=== PATIENT | male | born 1965 | race Caucasian/White ===

== ENCOUNTER 2016-12-31 08:31 | Observation (INO) ==
--- NOTE | 2016-12-31 08:45 | Emergency Department Report ---
Neuro HPI - General Chief Complaint: Neuro Symptoms/Deficit Stated Complaint: R side numbness Time Seen by Provider: 12/31/16 08:45 Source: patient Mode of arrival: ambulatory Limitations: no limitations - History of Present Illness HPI Narrative: Patient is a 51-year-old male HIV positive. Patient presents to the ER for evaluation of right-sided headache, of left arm with pain going down his right arm, and paresthesias of right leg. All of the symptoms started on , patient is taking ibuprofen with no relief. Patient feels he is slurring his speech as well, although patient easily able to be understood. Patient decided this morning to present to the ER for evaluation. On arrival patient's blood pressure 194/116. Onset (ago): day(s) (4 days) Time Estimated: Yes Location: left arm, right leg Severity: moderate Quality: tingling Relieving factors: none Exacerbating factors: none Context: gradual onset On Anticoagulants: No Treatments Prior to Arrival: none - Related Data Home Medications: Home Medications Medication Instructions Recorded Confirmed ARIPiprazole [Abilify] 2 mg PO DAILY 12/31/16 02/04/17 Citalopram Hydrobromide [Celexa] 40 mg PO DAILY 12/31/16 02/04/17 Darunavir/Cobicistat [Prezcobix 1 tab PO DAILY 12/31/16 02/04/17 800 mg-150 mg Tablet] Emtricitabine/Tenofov Alafenam 1 tab PO DAILY 12/31/16 02/04/17 [Descovy 200-25 mg Tablet] diphenhydrAMINE HCl [Benadryl] 50 mg PO HS 12/31/16 02/04/17 Aspirin 81 mg PO DAILY 01/09/17 02/04/17 Amlodipine [Norvasc] 10 mg PO HS 02/04/17 02/04/17 Atorvastatin Calcium 20 mg PO HS 02/04/17 02/04/17 Ibuprofen 800 mg PO Q8H PRN 02/04/17 02/04/17 Lisinopril [Prinivil] 20 mg PO DAILY 02/04/17 02/04/17 Previous Rx's Medication Instructions Recorded Baclofen [Lioresal] 1 tab PO TID PRN #20 tab 02/04/17 Meloxicam [Mobic] 15 mg PO DAILY #10 tab 02/04/17 Allergies/Adverse Reactions: Allergies Allergy/AdvReac Type Severity Reaction Status Date / Time No Known Allergies Allergy Verified 02/04/17 13:47 Review of Systems Constitutional: Denies: fever, chills, weakness Eyes: Denies: eye discharge ENT: Denies: throat pain, dental pain Cardiovascular: Denies: chest pain, palpitations Respiratory: Denies: cough, dyspnea Gastrointestinal: Denies: abdominal pain, nausea, vomiting Neurological: Reports: headache, numbness, paresthesias. Denies: weakness Psychiatric: Denies: anxiety, depression Allergic/Immunologic: Denies: facial swelling [facility] Patient Stated Medical History Human Immunodeficiency Virus ( Yes HIV) Medical History Updates: Hyperlipidemia. HIV positive - Social History Smoking status: Former smoker Substance use type: does not use Alcohol intake frequency: does not drink Physical Exam - General General appearance: alert, in no apparent distress - Head Head exam: normocephalic, normal inspection - Eye Eye exam: Present: PERRL, EOMI - ENT ENT exam: Present: normal oropharynx, mucous membranes moist - Neck Neck exam: Present: normal inspection, full ROM, trachea midline - Chest Chest inspection: Present: symmetric chest wall rise. Absent: tenderness, rash - Respiratory Respiratory exam: Present: normal lung sounds bilaterally. Absent: respiratory distress, wheezes, stridor - Cardiovascular Cardiovascular exam: Present: regular rate, normal rhythm, normal heart sounds - Abdominal Exam Abdominal exam: Present: soft. Absent: distention, tenderness - Back Exam Back exam: Present: full ROM, tenderness - Neurological Exam Neurological exam: Present: alert, oriented X3 - Expanded Neurological Exam Patient oriented to: Present: person, place, time Speech: Present: fluid speech (patient reports some slurring of speech which I do not appreciate) Cranial nerves: Normal: EOM function (II, III, IV, ), facial sensation (V), facial palsy (VII), gag reflex (IX), spinal accessory function (XI), tongue deviation (XII) Cerebellar function: Normal: finger to nose Cerebellar function: normal gait Motor strength - LUE: 5/5 Motor strength - RUE: 5/5 Motor strength - LLE: 5/5 Motor strength - RLE: 5/5 Upper motor neuron exam: Absent bilaterally: luigi neglect, pronator drift Sensory exam upper extremity: Abnormal Left: light touch Sensory exam lower extremity: Abnormal Right: light touch DTR: 2+: biceps (L), brachioradialis (L), patellar (L), patellar (R) Coma scale eye opening: spontaneous Coma scale motor response: obeys commands Coma scale verbal response: oriented Coma scale total: 15 - Psychiatric Psychiatric exam: Present: normal affect, normal mood Course Vital Signs Temperature 98.7 F 12/31/16 08:35 Pulse Rate 95 12/31/16 08:35 Respiratory Rate 20 12/31/16 08:35 Blood Pressure 196/117 H 12/31/16 08:35 Pulse Oximetry 98 12/31/16 08:35 Temperature 98.1 F 01/01/17 07:57 Pulse Rate 80 01/01/17 12:00 Respiratory Rate 13 01/01/17 10:04 Blood Pressure 138/70 01/01/17 10:04 Pulse Oximetry 95 01/01/17 10:04 Neuro Symptoms/Deficit - Differential Diagnosis Likely: carpal tunnel syndrome, subarachnoid hemorrhage, peripheral neuropathy, cerebrovascular accident, multiple sclerosis, transient cerebral ischemia - Medical Records Attestation: I reviewed the patient's medical records. - Lab Data Attestation: I reviewed the patient's lab results. Result diagrams: 01/01/17 04:02 01/01/17 04:02 Lab Results 12/31/16 12/31/16 12/31/16 Range/Units 09:06 09:07 09:07 WBC 8.1 (4.5-11.0) T/MM3 RBC 4.66 (4.50-5.90) M/MM3 Hgb 14.5 (13.5-17.5) GM/DL Hct 42.6 (41-53) % MCV 91.4 (80-100) UM3 MCH 31.1 (26-34) UUG MCHC 34.0 (31-37) GM/DL RDW Std Deviation 42.7 (36.9-50.2) FL Plt Count 198 (130-400) T/MM3 MPV 10.7 (9.4-12.4) UM3 Immature Gran % (Auto) 1.2 H (0.0-0.5) % Neut % (Auto) 68.9 H (33-66) % Lymph % (Auto) 20.2 L (23-45) % [place] % (Auto) 6.5 (0-9.0) % Eos % (Auto) 2.5 (0-4) % Baso % (Auto) 0.7 (0-2) % Neut # 5.6 (1.8-7.7) T/MM3 Lymph # 1.6 (1-4.8) T/MM3 [place] # 0.5 (0-0.8) T/MM3 Eos # 0.2 (0-0.5) T/MM3 Baso # 0.1 (0-0.2) T/MM3 Abs Immat Gran (auto) 0.10 H (0.00-0.03) T/MM3 INR (0.99-1.21) Turbidity < 20 (0-20) Sodium 144 (134-144) MEQ/L Potassium 4.0 (3.6-5) MEQ/L Chloride 109 H (98-107) MEQ/L Carbon Dioxide 23 (22-30) MEQ/L Anion Gap 12 (5-15) MEQ/L BUN 15.0 (9-20) MG/DL Creatinine 0.9 (0.8-1.5) MG/DL GFR Calculation 90 BUN/Creatinine Ratio 17 (6-26) RATIO Glucose 130 H (75-110) MG/DL Calculated Osmolality 280 (261-280) MOSM/KG Calcium 9.5 (8.4-10.2) MG/DL Total Bilirubin 0.60 (0.20-1.30) MG/DL Icterus Index < 2 (0-7) AST 33 (17-59) U/L ALT 50 (21-72) U/L Alkaline Phosphatase 72 (38-126) U/L Troponin I < 0.012 (0-0.12) ng/ml C-Reactive Protein 5.6 (0-9) MG/L Total Protein 7.8 (6.3-8.2) G/DL Albumin 4.6 (3.5-5.0) G/DL Globulin 3.2 (2.4-3.6) G/DL Albumin/Globulin Ratio 1.4 (1.1-2.2) RATIO TSH 4.02 (0.47-4.68) MIU/L Specimen Hemolysis < 15 (0-25) 12/31/ Range/Units 09:07 WBC (4.5-11.0) T/MM3 RBC (4.50-5.90) M/MM3 Hgb (13.5-17.5) GM/DL Hct (41-53) % MCV (80-100) UM3 MCH (26-34) UUG MCHC (31-37) GM/DL RDW Std Deviation (36.9-50.2) FL Plt Count (130-400) T/MM3 MPV (9.4-12.4) UM3 Immature Gran % (Auto) (0.0-0.5) % Neut % (Auto) (33-66) % Lymph % (Auto) (23-45) % [place] % (Auto) (0-9.0) % Eos % (Auto) (0-4) % Baso % (Auto) (0-2) % Neut # (1.8-7.7) T/MM3 Lymph # (1-4.8) T/MM3 [place] # (0-0.8) T/MM3 Eos # (0-0.5) T/MM3 Baso # (0-0.2) T/MM3 Abs Immat Gran (auto) (0.00-0.03) T/MM3 INR 0.95 L (0.99-1.21) Turbidity (0-20) Sodium (134-144) MEQ/L Potassium (3.6-5) MEQ/L Chloride (98-107) MEQ/L Carbon Dioxide (22-30) MEQ/L Anion Gap (5-15) MEQ/L BUN (9-20) MG/DL Creatinine (0.8-1.5) MG/DL GFR Calculation BUN/Creatinine Ratio (6-26) RATIO Glucose (75-110) MG/DL Calculated Osmolality (261-280) MOSM/KG Calcium (8.4-10.2) MG/DL Total Bilirubin (0.20-1.30) MG/DL Icterus Index (0-7) AST (17-59) U/L ALT (21-72) U/L Alkaline Phosphatase (38-126) U/L Troponin I (0-0.12) ng/ml C-Reactive Protein (0-9) MG/L Total Protein (6.3-8.2) G/DL Albumin (3.5-5.0) G/DL Globulin (2.4-3.6) G/DL Albumin/Globulin Ratio (1.1-2.2) RATIO TSH (0.47-4.68) MIU/L Specimen Hemolysis (0-25) - Radiology Data Attestation: I reviewed the patient's radiology results. Disposition Clinical Impression: Cerebrovascular accident Qualifiers: CVA mechanism: occlusion Precerebral and cerebral artery: unspecified cerebral artery Qualified Code(s): I63.50 - Cerebral infarction due to unspecified occlusion or stenosis of unspecified cerebral artery Disposition: [facility] Condition: Stable - Seen By: physician
[2016-12-31] MEDS ORDERED: LABETALOL 20mg/4ml INJECTION IVP ONE (08:50)
[2016-12-31] MEDS ORDERED: SALINE FLUSH 10ml SYRINGE IVF PRN (08:50)
--- OUTSIDE RECORDS SUMMARY | 2016-12-31 08:50 | External Medical Summary ---
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
--- OUTSIDE RECORDS SUMMARY | 2016-12-31 08:50 | External Medical Summary ---
:1965 Author [facility] Care Team Providers Name Role Phone Cindy Zarate Provider Role Unavailable Allergies, Adverse Reactions, Alerts Substance Reaction Event Type N.K.D.A. Info Not Available Non Drug Allergy Problems Problem Type Condition Code Onset Dates Condition Status Assessment Influenza vaccine needed Z23 Active Problem Cigarette nicotine dependence, F17.210 Active uncomplicated Assessment Acquired immune deficiency syndrome B20 Active Problem Low back pain M54.5 Active Problem Nicotine dependence, other tobacco F17.290 Active product, uncomplicated Problem Major depressive disorder with F32.9 Active single episode, remission status unspecified Problem Patient's other noncompliance with Z91.14 Active medication regimen Problem AIDS B20 Active Problem Mixed hyperlipidemia E78.2 Active Problem skilled nursing (current) use of opiate Z79.891 Active analgesic Assessment Major depressive disorder with F32.9 Active single episode, remission status unspecified Assessment Patient's other noncompliance with Z91.14 Active medication regimen Assessment Need for Z23 Active hdthieqbtn-lccqwjz-kcamfbozp (Tdap) vaccine Assessment Cigarette nicotine dependence, F17.210 Active uncomplicated Assessment Nicotine dependence, other tobacco F17.290 Active product, uncomplicated Assessment Screening examination for sexually Z11.3 Active transmitted disease 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 Jun 27, not (one half) prn 2006 defined Citalopram [facility] [id number] 40 TAKE ONE Hydrobromide TABLET BY MOUTH EVERY DAY Abilify [facility] [id number] 2 Orally Once a 1 tablet day Isentress [facility] 08907736849 400 TAKE ONE TABLET BY MOUTH TWICE A DAY Abilify [facility] [address]-63 2 MG Orally Feb 17, 1 tablet Once a day 2013 Pravastatin [facility] [address]-50 40 MG Orally August 1 tablet Sodium QHS 2014 Edurant [facility] [id number] 25 TAKE ONE TABLET BY MOUTH ONCE A DAY Prezcobix [facility] 05901-306-95 800/150 mg Oral Apr 06, 1 tablet Once Daily 2015 Descovy [facility] [address]-82 200-25 mg Apr 06, 1 tablet Orally Once a 2015 day Reyataz [facility] [address]-87 300 MG Orally 1 capsule Once a day with food Norvir [facility] 51198899104 100 TAKE ONE TABLET BY MOUTH EVERY DAY Ibuprofen [facility] [address]-26 200 MG Oral 3 not tablet two defined times daily as needed Procedures Procedure Coding System Code Date GENOTYPE, DNA, HIV REVERSE T CPT-4 09716 Apr 06, 2016 HIV-1, DNA, QUANT CPT-4 64031 Apr 06, 2016 FLU VAC NO PRSV 4 VARUN 3 YRS+ CPT-4 03797 Apr 06, 2016 ASSAY OF FREE THYROXINE CPT-4 60537 Apr 06, 2016 ASSAY THYROID STIM HORMONE CPT-4 41473 Apr 06, 2016 PHENOTYPE, INFECT AGENT DRUG CPT-4 87482 Apr 06, 2016 Venipuncture CPT-4 87017 Apr 06, 2016 IMMUNIZATION ADMIN CPT-4 27084 Apr 06, 2016 Pneumococcal polysaccharide PPV23 CPT-4 51316 Apr 06, 2016 COMPREHEN METABOLIC PANEL CPT-4 31857 Apr 06, 2016 Tdap CPT-4 35978 Apr 06, 2016 Office Visit, Est Pt., Level 3 CPT-4 51546 Apr 06, 2016 LIPID PANEL SO CPT-4 59318 Apr 06, 2016 T CELL, ABSOLUTE COUNT/RATIO CPT-4 57274 Apr 06, 2016 Vital Signs Date/Time: Apr 06, 2016 Temperature 97.7 F Weight 211 lbs Height 73 in Respiratory Rate 16 /min Cardiac Monitoring Heart Rate 89 /min Blood Pressure Diastolic 100 mm Hg Blood Pressure Systolic 150 mm Hg BMI 27.84 Index Oximetry 98 % Results No Known Results Immunizations Vaccine Administration Date Influenza Split 3 yrs > (QUAD) Apr 06, 2016 Pneumococcal polysaccharide PPV23 Apr 06, 2016 Tdap Apr 06, 2016 Summary Purpose eClinicalWorks Submission
--- OUTSIDE RECORDS SUMMARY | 2016-12-31 08:50 | External Medical Summary ---
:1965 Author [facility] Care Team Providers Name Role Phone [...] Active Problem Mixed hyperlipidemia E78.2 Active Problem [facility] (current) use of opiate Z79.891 Active analgesic Assessment Major depressive disorder with F32.9 Active single episode, remission status unspecified Assessment Patient's other noncompliance with Z91.14 Active medication regimen Assessment Need for Z23 Active rakwmmtktq-kcuyaar-dhqpbenkr (Tdap) vaccine Assessment Cigarette nicotine dependence, F17.210 Active uncomplicated Assessment Nicotine dependence, other tobacco F17.290 Active product, uncomplicated Assessment Screening examination for sexually Z11.3 Active transmitted disease 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 [address]-47 100 MG PO ? Jun 27, not (one half) prn 2006 defined Citalopram [facility] [id number] 40 TAKE ONE Hydrobromide TABLET BY MOUTH EVERY DAY Abilify [facility] 25975326880 2 Orally Once a 1 tablet day Abilify [facility] [address]-37 2 MG Orally Mar 12, 1 tablet Once a day [address] [facility] [address]-41 40 MG Orally August 25 tablet Sodium Q [address] [facility] 35316188574 25 TAKE ONE TABLET BY MOUTH ONCE A DAY Prezcobix [facility] 16676-087-92 800/150 mg Oral Apr 06, 1 tablet Once Daily [address] [facility] [address]-00 200-25 mg Apr 06, 1 tablet Orally Once a 2015 day Ibuprofen [facility] [address]-94 200 MG Oral 3 not tablet two defined times daily as needed Procedures Procedure Coding System Code Date GENOTYPE, DNA, HIV REVERSE T CPT-4 64961 Apr 06, 2016 HIV-1, DNA, QUANT CPT-4 51001 Apr 06, 2016 FLU VAC NO PRSV 4 VARUN 3 YRS+ CPT-4 43959 Apr 06, 2016 ASSAY OF FREE THYROXINE CPT-4 14822 Apr 06, 2016 ASSAY THYROID STIM HORMONE CPT-4 48749 Apr 06, 2016 PHENOTYPE, INFECT AGENT DRUG CPT-4 87813 Apr 06, 2016 Venipuncture CPT-4 63628 Apr 06, 2016 IMMUNIZATION ADMIN CPT-4 17143 Apr 06, 2016 Pneumococcal polysaccharide PPV23 CPT-4 72183 Apr 06, 2016 COMPREHEN METABOLIC PANEL CPT-4 50469 Apr 06, 2016 Tdap CPT-4 43949 Apr 06, 2016 Office Visit, Est Pt., Level 3 CPT-4 27428 Apr 06, 2016 LIPID PANEL SO CPT-4 75921 Apr 06, 2016 T CELL, ABSOLUTE COUNT/RATIO CPT-4 68971 Apr 06, 2016 Vital Signs Date/Time: Apr 06, 2016 Temperature 97.7 F Weight 211 lbs Height 73 in Respiratory Rate 16 /min Cardiac Monitoring Heart Rate 89 /min Blood Pressure Diastolic 100 mm Hg Blood Pressure Systolic 150 mm Hg BMI 27.84 Index Oximetry 98 % Results Name Result Date Reference Range Unit Abnormality Flag Thyroid-Stimulating Hormone (TSH) and Free T4 79211/45037 ----TSH 0.859 20160406 0.450-4.500 uIU/mL ----T4,Free(Direct) 0.86 20160406 0.82-1.77 ng/dL Lipid Panel 22808 ----LDL Cholesterol 104 20160406 0-99 mg/dL H Calc ----VLDL Cholesterol 43 49893313 5-40 mg/dL H Jamal ----Comment: FASHION MARKETER 20160406 ----Cholesterol, Total 171 20160406 100-199 mg/dL ----HDL Cholesterol 24 20160406 >39 mg/dL L ----Triglycerides 216 20160406 0-149 mg/dL H Human Immunodeficiency Virus (HIV-1), Quantitative, Real-time PCR (graph) 15620 ----HIV-1 RNA by PCR 037645 74222156 copies/mL ----log10 HIV-1 RNA 5.243 65393415 iet80axox/ mL Rapid Plasma Reagin (RPR), Test w/ Reflex to Quant RPR/Confirm Treponema pallidum Antibodies 26662 ----RPR Non Reactive 20160406 Non Reactive GenoSure ----HIV GenoSure(R) MG . [id number] PDF Metabolic Panel (14), Comprehensive (CMP) 93666 ----Potassium, Serum 4.9 20160406 3.5-5.2 mmol/L ----Sodium, Serum 144 20160406 136-144 mmol/L ----BUN/Creatinine 20 20160406 9-20 Ratio ----eGFR If Africn Am 108 68930175 >59 mL/min/1.7 3 ----eGFR If NonAfricn 93 02981650 >59 mL/min/1.7 Am 3 ----Creatinine, Serum 0.96 20160406 0.76-1.27 mg/dL ----BUN 19 20160406 6-24 mg/dL ----Glucose, Serum 68 20160406 65-99 mg/dL ----AST (SGOT) 30 20160406 0-40 IU/L ----Globulin, Total 3.6 20160406 1.5-4.5 g/dL ----ALT (SGPT) 30 20160406 0-44 IU/L ----A/G Ratio 1.1 20160406 1.1-2.5 ----Bilirubin, Total <0.2 20160406 0.0-1.2 mg/dL ----Alkaline 66 20160406 39-117 IU/L Phosphatase, S ----Carbon Dioxide, 27 20160406 18-29 mmol/L Total ----Calcium, Serum 9.0 20160406 8.7-10.2 mg/dL ----Protein, Total, 7.7 20160406 6.0-8.5 g/dL Serum ----Albumin, Serum 4.1 20160406 3.5-5.5 g/dL ----Chloride, Serum 104 20160406 97-106 mmol/L CD4/CD8 Ratio Profile 24145 ----MCV 92 20160406 79-97 fL ----MCHC 33.6 20160406 31.5-35.7 g/dL ----MCH 30.9 20160406 26.6-33.0 pg ----Platelets 146 20160406 150-379 x10E3/uL L ----RDW 13.9 08180834 12.3-15.4 % ----Lymphs 22 20160406 % ----Neutrophils 65 20160406 % ----NRBC FASHION MARKETER 20160406 ----Hematology FASHION MARKETER 20160406 Comments: ----Abs. CD 8 923 20160406 109-897 /uL H Suppressor ----% CD 4 Pos. Lymph. 14.5 46831455 30.8-58.5 % L ----CD4/CD8 Ratio 0.19 20160406 0.92-3.72 L ----% CD 8 Pos. Lymph. 76.9 66575447 12.0-35.5 % H ----RBC 4.70 20160406 4.14-5.80 x10E6/uL ----WBC 5.2 20160406 3.4-10.8 x10E3/uL ----Hematocrit 43.1 20160406 37.5-51.0 % ----Hemoglobin 14.5 20160406 12.6-17.7 g/dL ----Immature Grans 0.0 25909391 0.0-0.1 x10E3/uL (Abs) ----Immature 0 20160406 % Granulocytes ----Baso (Absolute) 0.0 85481392 0.0-0.2 x10E3/uL ----Eos (Absolute) 0.2 74760739 0.0-0.4 x10E3/uL ----Monocytes(Absolute 0.5 20160406 0.1-0.9 x10E3/uL ) ----Lymphs (Absolute) 1.2 24731362 0.7-3.1 x10E3/uL ----Absolute CD 4 174 54400097 359-1519 /uL L [place] ----Neutrophils 3.4 23982848 1.4-7.0 x10E3/uL (Absolute) ----Immature Cells FASHION MARKETER 34247545 ----Basos 0 41198072 % ----Monocytes 9 11194214 % ----Eos 4 70964301 % Immunizations Vaccine Administration Date Influenza Split 3 yrs > (QUAD) Apr 06, 2016 Pneumococcal polysaccharide PPV23 Apr 06, 2016 Tdap Apr 06, 2016 Summary Purpose eClinicalWorks Submission
--- OUTSIDE RECORDS SUMMARY | 2016-12-31 08:50 | External Medical Summary ---
:1965 Author Organization eClinicalWorks Care Team Providers Name Role Phone Annabelle Darden Provider Role Unavailable Allergies, Adverse Reactions, Alerts Substance Reaction Event Type Penicillins Info Not Available Non Drug Allergy Problems Problem Type Condition ICD-9 Code Onset Dates Condition Status Assessment Human immunodeficiency virus 042 Active [HIV] Problem Screening examination for V74.5 Active venereal disease Problem Mixed hyperlipidemia 272.2 Active Problem Human immunodeficiency virus 042 Active [HIV] Problem Need for prophylactic V04.81 Inactive vaccination and inoculation, Influenza Problem Nondependent tobacco use 305.1 Active disorder Problem Acute upper respiratory 465.9 Inactive infections of unspecified site Problem Personal history of V15.81 Inactive noncompliance with medical treatment, presenting hazards to health Problem Lumbago 724.2 Active Problem superintendent terminal (current) use of V58.69 Inactive opiate analgesic Medications Medication Code Code Instructions Start End Status Dosage System Date Date Isentress [facility] 17301605773 400 TAKE ONE TABLET BY MOUTH TWICE A DAY Norvir [facility] 64990492613 100 TAKE ONE TABLET BY MOUTH EVERY DAY Ibuprofen [facility] [address]-81 200 MG Oral 3 not defined tablet two times daily as needed Viagra [facility] [address]-84 100 MG PO ? (one Jun 27, not defined half) prn 2006 Abilify [facility] [address]-49 2 MG Orally Once Mar 12, 1 tablet a day 2013 Reyataz [facility] 90702328396 150 TAKE TWO CAPSULES BY MOUTH EVERY DAY Celexa [facility] [address]-26 40 MG Oral 1 Jun 02, not defined (one) daily 2013 Procedures Procedure Coding System Code Date T CELL, ABSOLUTE COUNT/RATIO CPT-4 69330 Mar 12, 2014 COMPREHEN METABOLIC PANEL CPT-4 56051 Mar 12, 2014 Venipuncture CPT-4 22547 Mar 12, 2014 Office Visit, Est Pt., Level 3 CPT-4 25666 Mar 12, 2014 HIV-1, DNA, QUANT CPT-4 95537 Mar 12, 2014 COMPLETE CBC W/AUTO DIFF WBC IH CPT-4 64324 Mar 12, 2014 Vital Signs Date/Time: Mar 12, 2014 Blood Pressure Systolic 160 mm Hg Weight 230 lbs Height 73 in Oximetry 98 % Respiratory Rate 18 /min Cardiac Monitoring Heart Rate 74 /min Blood Pressure Diastolic 100 mm Hg BMI 30.34 Index Results No Known Results Summary Purpose eClinicalWorks Submission
--- OUTSIDE RECORDS SUMMARY | 2016-12-31 08:50 | External Medical Summary ---
:1965 Author Organization e[employer]Works Care Team Providers Name Role Phone Rosana Loaiza Provider Role Unavailable Allergies No Known Allergies Problems Problem Type Condition Code Onset Dates Condition Status Problem Mixed hyperlipidemia 272.2 Active Problem Personal history of noncompliance V15.81 Inactive with medical treatment, presenting hazards to health Problem Screening examination for venereal V74.5 Active disease Assessment Human immunodeficiency virus [HIV] B20 Active disease Problem Nondependent tobacco use disorder 305.1 Active Problem Human immunodeficiency virus [HIV] 042 Active Problem Human immunodeficiency virus [HIV] B20 Active disease Problem retirement (current) use of opiate V58.69 Inactive analgesic Problem Acute upper respiratory infections 465.9 Inactive of unspecified site Problem Need for prophylactic vaccination V04.81 Inactive and inoculation, Influenza Problem Lumbago 724.2 Active Medications Medication Code Code Instructions Start End Status Dosage System Date Date Pravastatin [facility] [address]-49 40 MG Orally August 25 tablet Sodium Q 2014 Celexa [facility] 57883517649 40 TAKE ONE TABLET BY MOUTH EVERY DAY Abilify [facility] 97489747799 2 Orally Once a 1 tablet day Isentress [facility] 39116704888 400 TAKE ONE TABLET BY MOUTH TWICE A DAY Viagra [facility] [address]-24 100 MG PO ? Jun 27, not (one half) prn 2006 defined Citalopram [facility] 57389401893 40 TAKE ONE Hydrobromide TABLET BY MOUTH EVERY DAY Reyataz [facility] [address]-10 300 MG Orally 1 capsule Once a day with food Edurant [facility] 35699497230 25 TAKE ONE TABLET BY MOUTH ONCE A DAY Norvir [facility] [address]-82 100 MG TAKE ONE TABLET BY MOUTH EVERY DAY Ibuprofen [facility] [address]-87 200 MG Oral 3 not tablet two defined times daily as needed Results No Known Results Summary Purpose eClinicalWorks Submission
--- OUTSIDE RECORDS SUMMARY | 2016-12-31 08:50 | External Medical Summary ---
[...] Active Problem Mixed hyperlipidemia E78.2 Active Problem [facility] (current) use of opiate Z79.891 Active analgesic Medications Medication Code System Code Instructions Start Date End Date Status Dosage Bactrim DS [facility] [address] 800-160 MG Orally Apr 17, tablet -01 Two times daily 2015 Results No Known Results Summary Purpose eClinicalWorks Submission
--- OUTSIDE RECORDS SUMMARY | 2016-12-31 08:50 | External Medical Summary ---
:1965 Author Organization e[employer]Works Care Team Providers Name Role Phone Cindy Zarate Provider Role Unavailable Allergies No Known Allergies Problems Problem Type Condition Code Onset Dates Condition Status Problem Screening examination for venereal V74.5 Active disease Problem Mixed hyperlipidemia 272.2 Active Problem Human immunodeficiency virus [HIV] 042 Active Problem Need for prophylactic vaccination V04.81 Inactive and inoculation, Influenza Problem Nondependent tobacco use disorder 305.1 Active Problem Acute upper respiratory infections 465.9 Inactive of unspecified site Problem Personal history of noncompliance V15.81 Inactive with medical treatment, presenting hazards to health Problem Lumbago 724.2 Active Problem detention (current) use of opiate V58.69 Inactive analgesic Medications Medication Code System Code Instructions Start End Date Status Dosage Date Pravastatin [facility] [address] 40 MG Orally QHS September 22 tablet Sodium 2-10 2014 Results No Known Results Summary Purpose eClinicalWorks Submission
--- OUTSIDE RECORDS SUMMARY | 2016-12-31 08:50 | External Medical Summary ---
:1965 Author Organization e[employer]Works Care Team Providers Name Role Phone Cindy Zarate Provider Role Unavailable Allergies, Adverse Reactions, Alerts Substance Reaction Event Type Penicillins Info Not Available Non Drug Allergy Problems Problem Type Condition Code Onset Dates Condition Status Assessment Human immunodeficiency virus (HIV) 042 Active disease Problem Screening examination for venereal V74.5 Active disease Problem Mixed hyperlipidemia 272.2 Active Assessment Need for pneumococcal vaccination V03.82 Active Assessment Smoker 305.1 Active Problem Human immunodeficiency virus [HIV] 042 Active Problem Need for prophylactic vaccination V04.81 Inactive and inoculation, Influenza Problem Nondependent tobacco use disorder 305.1 Active Problem Acute upper respiratory infections 465.9 Inactive of unspecified site Problem Personal history of noncompliance V15.81 Inactive with medical treatment, presenting hazards to health Problem Lumbago 724.2 Active Problem terminal carman (current) use of opiate V58.69 Inactive analgesic Medications Medication Code Code Instructions Start End Status Dosage System Date Date Reyataz [facility] 75198618280 150 TAKE TWO CAPSULES BY MOUTH EVERY DAY Citalopram [facility] 71332480183 40 TAKE ONE Hydrobromide TABLET BY MOUTH EVERY DAY Ibuprofen [facility] [address]-24 200 MG Oral 3 not tablet two defined times daily as needed Viagra [facility] [address]-35 100 MG PO ? Jun 27, not (one half) prn 2006 defined Norvir [facility] 49178115991 100 TAKE ONE TABLET BY MOUTH EVERY DAY Abilify [facility] [address]-13 2 MG Orally Oct 17, 1 tablet Once a day 2013 Celexa [facility] 59731914999 40 TAKE ONE TABLET BY MOUTH EVERY DAY Isentress [facility] 02758844517 400 TAKE ONE TABLET BY MOUTH TWICE A DAY Procedures Procedure Coding System Code Date T CELL, ABSOLUTE COUNT/RATIO CPT-4 83884 September 17, 2014 COMPREHEN METABOLIC PANEL CPT-4 21605 September 17, 2014 Office Visit, New Pt., Level 3 CPT-4 60400 September 17, 2014 IMMUNIZATION ADMIN CPT-4 70244 September 17, 2014 PNEUMOCOCCAL VACC 13 VARUN IM CPT-4 11976 September 17, 2014 COMPLETE CBC W/AUTO DIFF WBC IH CPT-4 66276 September 17, 2014 ASSAY THYROID STIM HORMONE CPT-4 04578 September 17, 2014 LIPID PANEL SO CPT-4 80534 September 17, 2014 Councel > 10 Min in SX Smoker CPT-4 78067 September 17, 2014 ASSAY OF FREE THYROXINE CPT-4 92808 September 17, 2014 Vital Signs Date/Time: September 17, 2014 Temperature 98.8 F Weight 221 lbs Height 73 in Respiratory Rate 18 /min Cardiac Monitoring Heart Rate 72 /min Blood Pressure Diastolic 90 mm Hg Blood Pressure Systolic 138 mm Hg BMI 29.15 Index Oximetry 96 % Results No Known Results Immunizations Vaccine Administration Date Pneumococcal conjugate PCV 13 September 17, 2014 Summary Purpose eClinicalWorks Submission
--- OUTSIDE RECORDS SUMMARY | 2016-12-31 08:50 | External Medical Summary ---
[...] to health Problem Lumbago 724.2 Active Problem watermaster (current) use of opiate V58.69 Inactive analgesic Medications No Known Medications Results No Known Results Summary Purpose eClinicalWorks Submission
--- OUTSIDE RECORDS SUMMARY | 2016-12-31 08:50 | External Medical Summary ---
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 Problem AIDS B20 Active 64034499 Problem Cigarette nicotine F17.210 Active 11913569 dependence, uncomplicated Assessment Screening Z11.3 28 September, Active 529998505 examination for 2017 sexually transmitted disease Problem Major depressive F32.9 Active 64293335 disorder with single episode, remission status unspecified Problem Low back pain M54.5 Active 202523110 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 Unknown Non Drug Allergy September, Unknown SOCIAL HISTORY No smoking Hx information available PLAN OF CARE VITAL SIGNS Height 73 in 2016-09-28 Weight 235 lbs 2016-09-28 Temperature 97.8 degrees Fahrenheit 2016-09-28 Heart Rate 89 /min 2016-09-28 Respiratory Rate 18 /min 2016-09-28 Oximetry 96 % 2016-09-28 BMI 31.00 kg/m2 2016-09-28 Blood pressure systolic 162 mm Hg 2016-09-28 Blood pressure diastolic 80 mm Hg 2016-09-28 MEDICATIONS Medication Instructions Dosage Frequency Start End Duration Status Date Date Chantix Starting Orally 0.5 mg po as directed May, 30 days Active Month Navi 0.5 MG daily x 3 days 2017 X 11 & 1 MG then 0.5 mg bid X 42 x 4, then 1 mg BID Viagra 100 MG PO ? (one half) Jun, 0 Active prn 2006 Ibuprofen 200 MG Oral 3 tablet 0 Active two times daily as needed Abilify 2 MG Orally Once a 1 tablet 24h 17 Feb, day(s) Active day 2013 Pravastatin Orally QHS 1 tablet Aug, day(s) Active Sodium 40 MG 2014 Chantix Orally Twice a 1 tablet 12h 23 May, day(s) Active Continuing Month day 2016 Navi 1 MG Prezcobix Oral Once Daily 1 tablet 24h Mar, 30 days Active 800/150 mg 2015 Citalopram TAKE ONE Active Hydrobromide 40 TABLET BY MOUTH EVERY DAY Edurant 25 TAKE ONE 30 Active TABLET BY MOUTH ONCE A DAY Descovy 200-25 Orally Once a 1 tablet 24h 11 Mar, 30 days Active mg day 2015 RESULTS Name Result Date Reference Range Human Immunodeficiency Virus (HIV-1), 2016-09-28 Quantitative, Real-time PCR (graph) 21286 HIV-1 RNA by PCR 110 log10 HIV-1 RNA 2.041 Rapid Plasma Reagin (RPR), Test w/ Reflex to 2016-09-28 Quant RPR/Confirm Treponema pallidum Antibodies 85962 RPR Non Reactive Non Reactive Thyroid-Stimulating Hormone (TSH) and Free T4 2016-09-28 61694/69952 TSH 1.170 0.450-4.500 T4,Free(Direct) 0.73 0.82-1.77 Lipid Panel 07391 2016-09-28 Cholesterol, Total 201 100-199 Triglycerides 341 0-149 HDL Cholesterol 32 >39 VLDL Cholesterol Jamal 68 5-40 LDL Cholesterol Calc 101 0-99 Comment: MANAGER ARCHITECTURE Metabolic Panel (14), Comprehensive (CMP) 2016-09-28 77676 Glucose, Serum 97 65-99 BUN 21 6-24 Creatinine, Serum 0.84 0.76-1.27 eGFR If NonAfricn Am 103 >59 eGFR If Africn Am 119 >59 BUN/Creatinine Ratio 25 9-20 Sodium, Serum 140 134-144 Potassium, Serum 4.5 3.5-5.2 Chloride, Serum 101 96-106 Carbon Dioxide, Total 24 18-29 Calcium, Serum 9.2 8.7-10.2 Protein, Total, Serum 7.2 6.0-8.5 Albumin, Serum 4.4 3.5-5.5 Globulin, Total 2.8 1.5-4.5 A/G Ratio 1.6 1.2-2.2 Bilirubin, Total 0.3 0.0-1.2 Alkaline Phosphatase, S 65 39-117 AST (SGOT) 18 0-40 ALT (SGPT) 23 0-44 CD4/CD8 Ratio Profile 48008 2016-09-28 Absolute CD 4 [place] 617 647-5424 % CD 4 Pos. Lymph. 19.5 30.8-58.5 Abs. CD 8 Suppressor 1220 109-897 % CD 8 Pos. Lymph. 64.2 12.0-35.5 CD4/CD8 Ratio 0.30 0.92-3.72 WBC 8.0 3.4-10.8 RBC 4.78 4.14-5.80 Hemoglobin 14.8 12.6-17.7 Hematocrit 43.9 37.5-51.0 MCV 92 79-97 MCH 31.0 26.6-33.0 MCHC 33.7 31.5-35.7 RDW 14.3 12.3-15.4 Platelets 222 150-379 Neutrophils 63 Lymphs 24 Monocytes 8 Eos 3 Basos 1 Immature Cells MANAGER ARCHITECT[employer] Neutrophils (Absolute) 5.1 1.4-7.0 Lymphs (Absolute) 1.9 0.7-3.1 Monocytes(Absolute) 0.6 0.1-0.9 Eos (Absolute) 0.3 0.0-0.4 Baso (Absolute) 0.0 0.0-0.2 Immature Granulocytes 1 Immature Grans (Abs) 0.0 0.0-0.1 NRBC MANAGER ARCHITECTURE Hematology Comments: MANAGER ARCHITECTURE PROCEDURES Procedure Date Ordered Related Diagnosis Body Site T CELL, ABSOLUTE COUNT/RATIO September 28, 2016 COMPREHEN METABOLIC PANEL September 28, 2016 ASSAY THYROID STIM HORMONE September 28, 2016 LIPID PANEL SO September 28, 2016 Office Visit, Est Pt., Level 3 September 28, 2016 ASSAY OF FREE THYROXINE September 28, 2016 IMMUNIZATIONS No Known Immunizations
[2016-12-31] MEDS: NS 1,000 ML IV SCH ×3 (09:11→14:34)
--- NOTE | 2016-12-31 09:26 | CT Scan Report ---
EXAM: CT head/brain wo con LOCATION OF DICTATION: [place] HISTORY: right arm left leg paresthesia since COMPARISON: No prior studies available for comparison. TECHNIQUE: Multiple contiguous axial images were obtained of the head without contrast. Iterative Reconstruction dose reducing technique was utilized. FINDINGS: The ventricles and sulci are within normal limits for the patient's age. There is no midline shift or mass effect. The basilar cisterns are patent. The reynolds-white matter interface is within normal limits. There is no evidence for acute intraparenchymal or extra-axial hemorrhage. The paranasal sinuses and mastoid air cells are clear. The globes and orbits are within normal limits. There are no calvarial fractures demonstrated. IMPRESSION: 1. No evidence for acute intracranial process or hemorrhage. .
[2016-12-31] MEDS ORDERED: LABETALOL 100mg/20ml INJECTION IVP ONE (09:28)
[2016-12-31] MEDS ORDERED: HYDRALAZINE 20 MG/ML INJECTION IVP ONE ×2 (10:11→11:14)
--- NOTE | 2016-12-31 11:31 | Magnetic Resonance Report ---
EXAM: MR head/brain wo con LOCATION OF DICTATION: [place]. HISTORY: rule out acute stroke COMPARISON: No prior studies available for comparison. FINDINGS: The ventricles are of normal size, shape, and contour for the patient's age. There are a few T2/FLAIR hyperintensities within the deep/subcortical white matter. Subtle small focus of restricted diffusion suggestive within the darren left of midline There is no evidence of an intracranial mass lesion, intracranial hemorrhage, or hydrocephalus. The visualized portions of the orbits, calvarium, paranasal sinuses, and skull base demonstrate no significant abnormality. IMPRESSION: 1. Subtle focus of restricted diffusion suggested within the darren left of midline suggesting acute/recent ischemic insult. 2. A few T2/FLAIR hyperintensities in the deep/subcortical white matter likely secondary to chronic small vessel ischemia. In the appropriate clinical setting, vasculitis, migraines, or demyelinating process could have a similar appearance. .
[2016-12-31] MEDS: NICARDIPINE 50 MG in NS 500ml 500 ML IV PRN ×2 (12:27→19:54)
[2016-12-31 13:23] VITALS: BMI 31.3
--- NOTE | 2016-12-31 13:44 | History & Physical Report ---
<Luz Page - Last Filed: 12/31/16 15:19> History of Present Illness Date: 12/31/16 Chief complaint: slurred speech and R sided weakness HPI: Aiden is a 51-year-old HIV-positive white male. Patient presented to the ER for evaluation of slurred speech, right-sided headache and right-sided weakness and paresthesias. All of the symptoms started on 12/27/16. Patient decided this morning to present to the ER for evaluation because he felt "something isn't right.". On arrival patient's blood pressure 194/116. He was given labetalol and hydralazine and started on a nicardipine drip. His head CT was negative for acute intracranial process or hemorrhage. He also had an MRI while in the ER which showed subtle focus of restricted diffusion suggested within the darren left of midline suggesting acute ischemic insult. CBC, chemistry and INR are essentially unremarkable. See below. He is a patient of Dr. Roque. She follows him for HIV. He missed his most recent appointment, so he last saw her 3 months ago. She sees him every 3 months. He reports his "counts are good." Reports his viral burden had gone up slightly, but she wasn't concerned. States it was greater than 400 almost 500 at last check. He reports he had a cholesterol level checked through work and it was "high," but he does not take cholesterol medicine. He reports that Dr. Roque has commented that his blood pressure has been high, but has never recommended he be on blood pressure medicine. Patient admitted to ICU due to CVA for control of blood pressure (currently on nicardipine drip), further workup to include echo and carotid imaging, neuro checks, and continued monitoring. Review of Systems Comprehensive ROS: completed and no additional positive findings except those as stated - Gastrointestinal Gastrointestinal Comments: Heartburn - Neurological Neurological: Present: as per HPI PFSH Cerebrovascular Accident Hypertension Human Immunodeficiency Virus ( HIV) Depression Medical History Updates: Hyperlipidemia. HIV positive Surgical History: Left hand surgery for Skill saw injury-20 years ago. 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) Household members: none Current occupational status: employed (works at [employer] in [place] ) Current residence: Apartment/Private Home Medications Home Medications Medication Instructions Recorded Confirmed Type ARIPiprazole [Abilify] 2 mg PO DAILY 12/31/16 12/31/16 History Citalopram Hydrobromide [Celexa] 40 mg PO DAILY 12/31/16 12/31/16 History Darunavir/Cobicistat [Prezcobix 1 tab PO DAILY 12/31/16 12/31/16 History 800 mg-150 mg Tablet] Emtricitabine/Tenofov Alafenam 1 tab PO DAILY 12/31/16 12/31/16 History [Descovy 200-25 mg Tablet] diphenhydrAMINE HCl [Benadryl] 25 - 50 mg PO HS 12/31/16 12/31/16 History Allergies Allergy/AdvReac Type Severity Reaction Status Date / Time No Known Allergies Allergy Verified 12/31/16 08:43 Exam Vital Signs: Temperature 98.7 F 12/31/16 08:35 Pulse Rate 94 12/31/16 12:11 Respiratory Rate 21 12/31/16 10:30 Blood Pressure 177/88 H 12/31/16 12:45 Pulse Oximetry 98 12/31/16 12:11 Height: 1.83 m Weight: 104.8 kg Body Mass Index: 31.3 - Constitutional Present: no acute distress, well nourished, well developed, cooperative - Routine HEENT Exam Head: Present: normocephalic, atraumatic Eye: Present: EOMI, PERRL, normal accommodation ENT: Present: mucous membranes moist, oropharynx clear, external ear normal, TM' s clear bilaterally. Absent: dentition normal - Routine Neck Exam Present: supple, full ROM. Absent: JVD, carotid bruit - Routine Chest/Breast/Axilla Exam Chest wall: Absent: tenderness, mass - Routine Respiratory Exam Present: CTA bilaterally. Absent: respiratory distress, wheezes - Routine Cardiovascular Exam Present: RRR, S1, S2. Absent: murmur - Routine Abdominal Exam Present: soft, normoactive bowel sounds, non distended. Absent: tenderness - Routine Extremities Exam Present: no edema, pulses intact, normal capillary refill. Absent: pallor - Routine Back/Spine/Pelvis Exam Back/Spine: Present: full ROM. Absent: CVA tenderness - Routine Skin Exam Present: dry, warm - Routine Neurological Exam Present: alert, oriented X3, CN II-XII intact, moving all extremities, normal tone, vision grossly intact. Absent: sensory deficit, pronator drift, altered mental status Speech is understandable, but he does have a slight slurring to his speech, along with a slight droop of the right side of the mouth. No other appreciable facial droop. Weather [place] strength is good bilaterally, but is very slightly decreased on the right. Upper extremity strength 5/5 bilateral Lower extremity strength 5/5 on the left and very slightly decreased on the right in comparison. Finger-nose normal. With alternating hand movements the right is delayed compared to the left. - Routine Psychiatric Exam Present: normal affect, normal thought process, cooperative Results - Labs CBC & Chem 7: 12/31/16 09:07 12/31/16 09:07 - Imaging and Cardiology CT scan - head Additional comments: CT head IMPRESSION: 1. No evidence for acute intracranial process or hemorrhage. MRI head IMPRESSION: 1. Subtle focus of restricted diffusion suggested within the darren left of midline suggesting acute/recent ischemic insult. 2. A few T2/FLAIR hyperintensities in the deep/subcortical white matter likely secondary to chronic small vessel ischemia. In the appropriate clinical setting, vasculitis, migraines, or demyelinating process could have a similar appearance. Assessment and Plan (1) Cerebrovascular accident Current visit: Yes Status: Acute DVT Prophylaxis: SCD's GI Prophylaxis: Protonix Resuscitation Status: Full Code Assessment and Plan: Impression: CVA HIV-follows with Dr. Roque Hyperlipidemia Hypertension Depression Plan: Admit patient to ICU for close monitoring of hypertension, currently on nicardipine drip. Will follow blood pressures. He is on telemetry. Will consult Dr. Donnelly for his expert opinion. Neurochecks every 2 hours initially. Start aspirin 325 mg now and then daily. Will not start statin as there is contraindication with his HIV med. Echo and carotid ultrasound and labs to include TSH, CRP, troponin for further workup. With repeat CBC and BMP and fasting lipids in a.m. Speech, PT, OT evaluation to assess swallowing, strength and functioning. Continue his HIV meds. He may take his own medications throughout this stay. Continue Abilify and citalopram for depression. Will start routine Protonix and PRN Tums as he has complaints of reflux and for GI prophylaxis given initiation of aspirin. SCDs for VTE prevention. Plan of care discussed with attending. Patient requests FULL CODE STATUS. This order is written. Upon discharge care will return to PCP, Dr. Mariella Roque. - Time spent with patient greater than 35 minutes Hospital Course Summary Disclaimer: The visit summary below is not to be considered part of the above Progress Note. <ArcenioAdy bautista D - Last Filed: 12/31/16 16:15> History of Present Illness Date: 12/31/16 [facility] Patient Stated Medical History Cerebrovascular Accident Yes: weakness right side since Hypertension Yes Human Immunodeficiency Virus ( Yes HIV) Depression Yes Exam Vital Signs: Temperature 98.7 F 12/31/16 08:35 Pulse Rate 96 12/31/16 14:15 Respiratory Rate 17 12/31/16 14:15 Blood Pressure 154/74 H 12/31/16 14:15 Pulse Oximetry 97 12/31/16 14:15 Oxygen Delivery Method Room Air Height: 1.83 m Weight: 104.8 kg Results - Labs CBC & Chem 7: 12/31/16 09:07 12/31/16 09:07 Assessment and Plan (1) Cerebrovascular accident Current visit: Yes Status: Acute Assessment and Plan: Have independently interviewed and examined pt. Chart reviewed. Case discussed with ED physician and my PA. Care plan developed with my supervision; agree with above. Presents to ED secondary to right sided numbness, weakness, slurring of speech. Symptoms onset 12/27. Not seen progression of symptoms, but not resolving. No RHODES/ Head pain. Vision/hearing have been stable. No recent trauma or injury. Denies recent illness/viral syndrome. No f/c. Denies palpitations or cardiac irregularity. Does report intermittent heartburn. Breathing stable. Did quit smoking in Jun of this year after smoking for greater than 30 years (does report feeling much better in general since he stopped smoking). Follows with Dr Roque for his HIV - viral burden controlled well with medications. Does not use ASA routinely (occasional Ibuprofen for aches/pains). Lungs: clear bilaterally. CV: tachy, regular AB: soft nt/nd +BS EXT: no edema MSE: awake alert appropriate. Communicates well. Neuro: Minor drooping to right side of face. Minimal weakness to right pot firer. Assessment: as above. Plan: OBS. CCU for Nasima sauerip - do not want to lower BP to aggressively initially, keep SBP >150 today and work to titrate down BP tomorrow. ASA for CV protection. Check lipid profile - his HIV medications preclude statins. ECHO and carotid Doppler. Neurological consult. PT/OT/Speech eval. Continue home medications. Monitor lab. Care to return to Dr Roque at time of discharge from [facility]. Hospital Course Summary Disclaimer: The visit summary below is not to be considered part of the above Progress Note. Hospital Course: 12/31/16 Impression: CVA HIV-follows with Dr. Roque Hyperlipidemia Hypertension Depression Plan: Admit patient to ICU for close monitoring of hypertension, currently on nicardipine drip. Will follow blood pressures. He is on telemetry. Will consult Dr. Donnelly for his expert opinion. Neurochecks every 2 hours initially. Start aspirin 325 mg now and then daily. Will not start statin as there is contraindication with his HIV med. Echo and carotid ultrasound and labs to include TSH, CRP, troponin for further workup. With repeat CBC and BMP and fasting lipids in a.m. Speech, PT, OT evaluation to assess swallowing, strength and functioning. Continue his HIV meds. He may take his own medications throughout this stay. Continue Abilify and citalopram for depression. Will start routine Protonix and PRN Tums as he has complaints of reflux and for GI prophylaxis given initiation of aspirin. SCDs for VTE prevention. Plan of care discussed with attending. Patient requests FULL CODE STATUS. This order is written. Upon discharge care will return to PCP, Dr. Mariella Roque.
[2016-12-31] MEDS ORDERED: CALCIUM CARBONATE Chewable 500mg TABLET PO PRN (14:11)
[2016-12-31] MEDS: PANTOPRAZOLE 40 MG TABLET PO SCH (14:28)
[2016-12-31] MEDS: ASPIRIN 325 MG TABLET PO SCH (14:29)
[2016-12-31] MEDS ORDERED: NICARDIPINE 50 MG in NS 500ml 500 ML IV PRN (14:40)
--- NOTE | 2016-12-31 16:09 | Ultrasound Report ---
EXAM: US carotid doppler BI LOCATION OF DICTATION: [place] HISTORY: CVA COMPARISON: No prior studies available for comparison. TECHNIQUE: Multiple real-time grayscale sonographic images were obtained of the carotid arteries bilaterally with color flow and spectral analysis. Peak systolic velocities are measured in centimeters per second. FINDINGS: Velocities are as follows: RIGHT CAROTID SYSTEM: CCA: 150 cm/S Proximal ICA: 95.4 cm/S Distal ICA: 108 cm/S ECA: 246 cm/S Vertebral: 64.5 ICA/CCA ratio: 0.7 LEFT CAROTID SYSTEM: CCA: 128 cm/S Proximal ICA: 115 cm/S Mid ICA: 107 cm/S Distal ICA: 101 cm/S ECA: 248 cm/S Vertebral: 51.1 ICA/CCA ratio: 0.9 IMPRESSION: There is minimal plaque demonstrated within both carotid arterial systems. No elevated velocities within the internal carotid arteries to suggest hemodynamic significant stenosis. .
--- NOTE | 2016-12-31 18:32 | Consultation ---
DATE: 12/31/[address] Rg CHIEF COMPLAINT Right-sided weakness, numbness and dysarthria. HISTORY OF PRESENT ILLNESS Patient is a 51-year-old male with history of HIV for over 20 years. The patient presented to the ER with new symptoms of right-sided weakness, increased sensitivity to touch and mild dysarthria problem. His symptoms started a few days prior to evaluation. The patient's symptoms did not improve and he felt he had to be checked. The patient's HIV has been controlled with medication. He normally follows up with Dr. Roque in [place]. On admission to the ER the patient's blood pressure was very high, 194/116. He was given labetalol, hydralazine and started on Nicardipine drip. His blood pressure has been in the 140's to 150's/100. The patient's symptoms have been stable since admission to the ICU. He has had no worsening of weakness or numbness. His speech has improved. He has had no significant headache or vision changes. The patient had a CT scan of the head initially which was unremarkable. He then had an MRI of the brain that showed a subacute ischemic lesion in the left anterior aspect of the darren. The patient has not been taking any aspirin or other antiplatelet therapy in the past. He denies having any similar symptoms or stroke-like symptoms in the past. The patient's lab work is unremarkable including normal CBC and chemistry. PHYSICAL EXAMINATION GENERAL: The patient was awake, alert, oriented x3. HEENT: Pupils were round, reactive and equal. Extraocular muscles were intact. Visual field was full. NEURO: Speech was fluent. Facial motor and sensory were unremarkable. Motor examination in the upper extremities was 5-/5 on the right and 5/5 on the left. There was some difficulty with fine motor on the right compared to the left. In the lower extremities it was 5/5 bilaterally. Sensory examination was slightly abnormal on the right with hypersensitivity to touch compared to the left. Deep tendon reflexes were 2+/4 bilaterally and plantar reflexes were in flexion bilaterally. Coordination for [id number] was borderline bilaterally. ASSESSMENT 1. Acute ischemic stroke affecting the left darren. This has been associated with mild right-sided weakness and sensory deficit and speech problem. The patient's symptoms have been stable and improving since admission. The patient was found to have a very elevated blood pressure which has been controlled with medication. PLAN 1. Continue the patient on aspirin 81-325 mg p.o. q.d. 2. Slowly control blood pressure and keep it in the upper range of normal during stroke symptoms. 3. Consider physical and occupational therapy as soon as the patient's condition is stable. 3. The patient can follow up with Dr. Donnelly as an outpatient if needed. STEPHANIE
[2016-12-31] MEDS ORDERED: DIPHENHYDRAMINE 25 MG PO SCH (22:00)
[2017-01-01] MEDS: PANTOPRAZOLE 40 MG TABLET PO SCH (06:39)
[2017-01-01] MEDS: ASPIRIN 325 MG TABLET PO SCH (08:06)
[2017-01-01 08:42] VITALS: TEMP 98.1
[2017-01-01] MEDS ORDERED: ARIPIPRAZOLE 2 MG PO SCH (09:00)
[2017-01-01] MEDS ORDERED: COBICISTAT PO SCH (09:00)
[2017-01-01] MEDS ORDERED: EMTRICITABINE PO SCH (09:00)
[2017-01-01] MEDS ORDERED: DARUNAVIR PO SCH (09:00)
[2017-01-01] MEDS ORDERED: TENOFOV ALAFENAM PO SCH (09:00)
[2017-01-01] MEDS ORDERED: CITALOPRAM 40 MG PO SCH (09:00)
[2017-01-01 10:07] VITALS: BP 138/70; RESP 13; O2SAT 95
[2017-01-01] MEDS ORDERED: NICARDIPINE 50 MG in NS 500ml 500 ML IV SCH (12:00)
[2017-01-01 12:19] VITALS: PULSE 80
--- NOTE | 2017-01-01 13:07 | Progress Note ---
Subjective: F/U: CVA, right sided numbness/weakness and slurred speech. Doing better today. Right side feeling less weak. Did well with therapy-mild deficit noted. BP showing increase to 160 after Nipride stopped. No chest pressure or pain. Breathing stable. Eating well. Fasting blood sugar 105. Objective Vital signs: Temperature 98.1 F 01/01/17 07:57 Pulse Rate 80 01/01/17 12:00 Respiratory Rate 13 01/01/17 10:04 Blood Pressure 138/70 01/01/17 10:04 Pulse Oximetry 95 01/01/17 10:04 Oxygen Delivery Method Room Air Rhythm: Normal Sinus Rhythm Weight: 105.2 kg - Constitutional Present: no acute distress, well nourished, well developed, obese, cooperative - Routine HEENT Exam Head: Present: normocephalic, atraumatic Eye: Present: EOMI, PERRL. Absent: conjunctival icterus ENT: Present: mucous membranes moist - Routine Respiratory Exam Present: CTA bilaterally, diminished air movement. Absent: respiratory distress , rhonchi, wheezes, crackles - Routine Cardiovascular Exam Present: RRR, no murmur - Routine Abdominal Exam Present: soft, normoactive bowel sounds, non distended, non tender - Routine Extremities Exam Present: no edema, pulses intact. Absent: cyanosis, clubbing - Routine Musculoskeletal Exam Musculoskeletal: Present: no clubbing or cyanosis - Routine Skin Exam Present: intact, warm - Routine Neurological Exam Present: alert, oriented X3, CN II-XII intact, vision grossly intact, hearing grossly intact - Routine Psychiatric Exam Present: normal affect, cooperative, good insight, good judgment Results - Labs CBC & Chem 7: 01/01/17 04:02 01/01/17 04:02 Labs: Laboratory Tests 01/01/17 04:02 Triglycerides 277 H Cholesterol 199 LDL Cholesterol, Calc 112.6 VLDL Cholesterol 55.4 H HDL Cholesterol 31 L Cholesterol/HDL Ratio 6.4 H Assessment and Plan (1) Cerebrovascular accident Current visit: Yes Status: Acute Assessment and Plan: CVA Right numbness/weakness HIV-follows with Dr. Roque Hyperlipidemia Hypertension Depression Obesity Carotid dopplers showing mild plaque but no rate limiting stenosis. ECHO pending. Discussed cholesterol profile with patient - ideally Statin therapy would be prudent, but significant interaction with his HIV medication. Encourage decreasing caloric/carbohydrate intake and exercise/weight reduction to help. With BP elevation, will start Norvasc 5mg daily for BP control. Encourage monitoring of blood pressures in outpatient setting. ASA 81mg daily due to stroke - pt to watch for bleeding/bruising with this medication. Discussed about potential of GI bleeding and sighs/symptoms to watch for. Encourage exercises taught by PT/OT to help recovery. If pt does not think he is making enough improvement, could have outpatient therapy. With patients clinical improvement, will discharge to home. Will have patient on light duty at work (not lifting >10 lbs) for at least one week. F/U with Dr Roque in 1 week for medical reevaluation. See orders for details. Case discussed with nursing, CM, and patients parents. Time spent with patient' s care and discharge greater than 35 minutes. Sepsis Assessment - Evaluation Sepsis screening result: No Definite Risk Hospital Course Summary Disclaimer: The visit summary below is not to be considered part of the above Progress Note. Hospital Course: 12/31/16 Impression: CVA (Acute ischemic stroke affecting the left darren) - right sided numbness/ weakness. HIV-follows with Dr. Roque Hyperlipidemia Hypertension Depression Obesity Plan: Admit patient to ICU for close monitoring of hypertension, currently on nicardipine drip. Will follow blood pressures. He is on telemetry. Will consult Dr. Donnelly for his expert opinion. Neurochecks every 2 hours initially. Start aspirin 325 mg now and then daily. Will not start statin as there is contraindication with his HIV med. Echo and carotid ultrasound and labs to include TSH, CRP, troponin for further workup. With repeat CBC and BMP and fasting lipids in a.m. Speech, PT, OT evaluation to assess swallowing, strength and functioning. Continue his HIV meds. He may take his own medications throughout this stay. Continue Abilify and citalopram for depression. Will start routine Protonix and PRN Tums as he has complaints of reflux and for GI prophylaxis given initiation of aspirin. SCDs for VTE prevention. Plan of care discussed with attending. Patient requests FULL CODE STATUS. This order is written. Upon discharge care will return to PCP, Dr. Mariella Roque. 01/01/17 Carotid dopplers showing mild plaque but no rate limiting stenosis. ECHO pending. Discussed cholesterol profile with patient - ideally Statin therapy would be prudent, but significant interaction with his HIV medication. Encourage decreasing caloric/carbohydrate intake and exercise/weight reduction to help. With BP elevation, will start Norvasc 5mg daily for BP control. Encourage monitoring of blood pressures in outpatient setting. ASA 81mg daily due to stroke - pt to watch for bleeding/bruising with this medication. Discussed about potential of GI bleeding and sighs/symptoms to watch for. Encourage exercises taught by PT/OT to help recovery. If pt does not think he is making enough improvement, could have outpatient therapy. With patients clinical improvement, will discharge to home. Will have patient on light duty at work (not lifting >10 lbs) for at least one week. F/U with Dr Roque in 1 week for medical reevaluation. See orders for details.
--- NOTE | 2017-01-01 13:26 | Discharge Summary ---
Discharge Information Date of admission: 12/31/16 12:54 Anticipated date of discharge: 01/01/17 Attending Physician: Ady Rg MD Primary care physician: MARIELLA CHAWLA Consults: 12/31/16 Consulting Provider: Meredith Donnelly - Neurology Reason For Exam: acute CVA 01/01/17 Dietary Consult Comment: elevated triglycerides PT/OT/Speech - Discharge Diagnosis Discharge Diagnosis: CVA (Acute ischemic stroke affecting the left darren) - right sided numbness/ weakness. HIV-follows with Dr. Chawla Hyperlipidemia Hypertension Depression Obesity - Laboratory Labs: 01/01/17 04:02 01/01/17 04:02 Laboratory Tests 12/31/16 09:06 C-Reactive Protein 5.6 TSH 4.02 Laboratory Tests 01/01/17 04:02 Triglycerides 277 H Cholesterol 199 LDL Cholesterol, Calc 112.6 VLDL Cholesterol 55.4 H HDL Cholesterol 31 L Cholesterol/HDL Ratio 6.4 H - Radiology Radiology: Date of Exam: 12/31/16 Type of Exam: MR head/brain wo con FINDINGS: The ventricles are of normal size, shape, and contour for the patient's age. There are a few T2/FLAIR hyperintensities within the deep/subcortical white matter. Subtle small focus of restricted diffusion suggestive within the darren left of midline There is no evidence of an intracranial mass lesion, intracranial hemorrhage, or hydrocephalus. The visualized portions of the orbits, calvarium, paranasal sinuses, and skull base demonstrate no significant abnormality. IMPRESSION: 1. Subtle focus of restricted diffusion suggested within the darren left of midline suggesting acute/recent ischemic insult. 2. A few T2/FLAIR hyperintensities in the deep/subcortical white matter likely secondary to chronic small vessel ischemia. In the appropriate clinical setting , vasculitis, migraines, or demyelinating process could have a similar appearance. Date of Exam: 12/31/16 EXAM: US carotid doppler BI TECHNIQUE: Multiple real-time grayscale sonographic images were obtained of the carotid arteries bilaterally with color flow and spectral analysis. Peak systolic velocities are measured in centimeters per second IMPRESSION: There is minimal plaque demonstrated within both carotid arterial systems. No elevated velocities within the internal carotid arteries to suggest hemodynamic significant stenosis. History of Present Illness HPI: Aiden is a 51-year-old HIV-positive white male. Patient presented to the ER for evaluation of slurred speech, right-sided headache and right-sided weakness and paresthesias. All of the symptoms started on 12/27/16. Patient decided this morning to present to the ER for evaluation because he felt "something isn't right.". On arrival patient's blood pressure 194/116. He was given labetalol and hydralazine and started on a nicardipine drip. His head CT was negative for acute intracranial process or hemorrhage. He also had an MRI while in the ER which showed subtle focus of restricted diffusion suggested within the darren left of midline suggesting acute ischemic insult. CBC, chemistry and INR are essentially unremarkable. See below. He is a patient of Dr. Chawla. She follows him for HIV. He missed his most recent appointment, so he last saw her 3 months ago. She sees him every 3 months. He reports his "counts are good." Reports his viral burden had gone up slightly, but she wasn't concerned. States it was greater than 400 almost 500 at last check. He reports he had a cholesterol level checked through work and it was "high," but he does not take cholesterol medicine. He reports that Dr. Chawla has commented that his blood pressure has been high, but has never recommended he be on blood pressure medicine. Patient admitted to ICU due to CVA for control of blood pressure (currently on nicardipine drip), further workup to include echo and carotid imaging, neuro checks, and continued monitoring. For complete details of the H&P refer to that document. Objective Vital signs: Temperature 98.1 F 01/01/17 07:57 Pulse Rate 80 01/01/17 12:00 Respiratory Rate 13 01/01/17 10:04 Blood Pressure 138/70 01/01/17 10:04 Pulse Oximetry 95 01/01/17 10:04 Oxygen Delivery Method Room Air Rhythm: Normal Sinus Rhythm Weight: 105.2 kg Hospital Course This is a general summary of the patient's hospital course. For more details refer to the complete medical record. Hospital course: 12/31/16 Impression: CVA (Acute ischemic stroke affecting the left darren) - right sided numbness/ weakness. HIV-follows with Dr. Chawla Hyperlipidemia Hypertension Depression Obesity Plan: Admit patient to ICU for close monitoring of hypertension, currently on nicardipine drip. Will follow blood pressures. He is on telemetry. Will consult Dr. Donnelly for his expert neurological opinion. Neurochecks every 2 hours initially. Start aspirin 325 mg now and then daily. Will not start statin as there is contraindication with his HIV med. Echo and carotid ultrasound and labs to include TSH, CRP, troponin for further workup. With repeat CBC and BMP and fasting lipids in a.m. Speech, PT, OT evaluation to assess swallowing, strength and functioning. Continue his HIV meds. He may take his own medications throughout this stay. Continue Abilify and citalopram for depression. Will start routine Protonix and PRN Tums as he has complaints of reflux and for GI prophylaxis given initiation of aspirin. SCDs for VTE prevention. Plan of care discussed with attending. Patient requests FULL CODE STATUS. This order is written. Upon discharge care will return to PCP, Dr. Mariella Chawla. 01/01/17 Carotid dopplers showing mild plaque but no rate limiting stenosis. ECHO pending. Discussed cholesterol profile with patient - ideally Statin therapy would be prudent, but significant interaction with his HIV medication. Encourage decreasing caloric/carbohydrate intake and exercise/weight reduction to help. With BP elevation, will start Norvasc 5mg daily for BP control. Encourage monitoring of blood pressures in outpatient setting. ASA 81mg daily due to stroke - pt to watch for bleeding/bruising with this medication. Discussed about potential of GI bleeding and sighs/symptoms to watch for. Encourage exercises taught by PT/OT to help recovery. If pt does not think he is making enough improvement, could have outpatient therapy. With patients clinical improvement, will discharge to home. Will have patient on light duty at work (not lifting >10 lbs) for at least one week. F/U with Dr Chawla in 1 week for medical reevaluation. See orders for details. Time spent with patient: discharge greater than 30 minutes DVT Prophylaxis: SCD's GI Prophylaxis: Protonix Discharge Plan - Med Rec/Dispo Referrals/Follow Up: MARIELLA CHAWLA [Family Provider] - 1 Week (F/U CVA - check BP on Norvasc. Consider cholesterol treatment that would not interfer with his HIV medication. ) Prescriptions: New Amlodipine [Norvasc] 5 mg PO DAILY #30 tablet Aspirin Chewable [ASA] 81 mg PO DAILY #30 tab Continue Citalopram Hydrobromide [Celexa] 40 mg PO DAILY ARIPiprazole [Abilify] 2 mg PO DAILY Darunavir/Cobicistat [Prezcobix 800 mg-150 mg Tablet] 1 tab PO DAILY Emtricitabine/Tenofov Alafenam [Descovy 200-25 mg Tablet] 1 tab PO DAILY diphenhydrAMINE HCl [Benadryl] 25 - 50 mg PO HS Discharge Instructions/Outpatient Orders: Final Provider Discharge Instructions Location: Determined By Patient - Attestation Attestation Narrative: 01/01/17 13:39 I have independently interviewed and examined pt prior to discharge. See my progress note from today for details. Patient medically stable for discharge.
[2017-01-01] MEDS ORDERED: AMLODIPINE 5 MG TABLET PO SCH (13:30)
--- NOTE | 2017-01-01 13:43 | Work/School Release ---
Work/School Release - Date Date: 01/01/17 - Work Release May return to work on:: May return to work on 01/02/17 Restrictions:: Lite duty activities (no lifting greater than 10 pounds) for at least 1 week.
--- NOTE | 2017-01-01 13:59 | Progress Note ---
DATE 01/01/[address] Rg The patient's chief complaint is right-sided weakness and numbness. HISTORY OF PRESENT ILLNESS The patient has done better overnight. His right-sided weakness and numbness have improved. He continues to have some mild fine motor problem in his right hand and right foot. He has been able to get out of bed and walk around the bed. He is still feeling slightly unsteady doing so. His coordination also improved. His blood pressure has been in the 130/80 range. The patient denies having any other neurological complaints. ASSESSMENT Acute ischemic stroke affecting the left darren. This has been stable since admission. The patient's blood pressure is controlled with medication. He has had improving symptoms of weakness, numbness and coordination problem. PLAN 1. Continue aspirin 81-325 mg p.o. q.d. for stroke prevention. 2. Optimize treatment for hypertension and follow up with cardiology as needed. 3. Physical and occupational therapy to improve mobility and coordination. STEPHANIE
--- NOTE | 2017-01-01 16:26 | Echocardiogram ---
DATE OF PROCEDURE December 31, 2016 REFERRING PHYSICIAN Sahra Sevilla MD This is a two-dimensional echo with spectral Doppler, color-flow and M-mode. It was obtained in a patient with CVA. Left atrial dimension is normal. Left ventricle end-diastolic dimension is normal. Left ventricle wall thickness is increased. LV systolic function is normal with ejection fraction of 58%. Right atrium is normal. Right ventricle is normal. Aortic root dimension is normal. Mitral valve is morphologically normal with trace of mitral regurgitation. Aortic valve appears to be normal with trace of aortic insufficiency. Tricuspid valve shows trace of tricuspid regurgitation with normal estimated pulmonary artery systolic pressure of 22. Pulmonary valve shows no pulmonary insufficiency. There is no pericardial effusion. Grossly there is no cardiac thrombus or mass. IMPRESSION 1. Technically difficult study. 2. Grossly no intracardiac thrombus or mass. 3. Normal LV systolic function with ejection fraction of 58%. 4. Left ventricular hypertrophy. 5. Trace of mitral regurgitation. 6. Trace of aortic insufficiency. 7. Trace of tricuspid regurgitation with normal estimated pulmonary artery systolic pressure of 22. MTDD
== END 2017-01-01 14:23 | disposition home or self-care (01) ==
LOC: ED 08:31 → CCU 08:31 → SRG 08:31 → MERGE 12:06 → CCU 12:53 → SRG 13:05 → UNDODISOB 01-01 14:23
PROVIDERS: ADMIT Hospitalist; ATTEND Hospitalist